=== PATIENT | female | born 1980 | race Caucasian/White ===

== ENCOUNTER → 2023-10-20 10:11 | Outpatient (BNVA) | payer OTHER, SELFPAY | PROVIDERS: Visit Provider Physician Assistant Medical | DX: S80.01XA Contusion of right knee, initial encounter (principal); S90.31XA Contusion of right foot, initial encounter; S93.511A Sprain of interphalangeal joint of right great toe, initial encounter; S76.012A Strain of muscle, fascia and tendon of left hip, initial encounter; W01.0XXA Fall on same level from slipping, tripping and stumbling without subsequent striking against object, initial encounter | CPT/HCPCS: 73610; 99203 ==

== ENCOUNTER → 2023-10-26 14:23 | Outpatient (BNVA) | payer OTHER, SELFPAY | PROVIDERS: Visit Provider Physician Assistant Medical | DX: S80.01XA Contusion of right knee, initial encounter (principal); S76.012A Strain of muscle, fascia and tendon of left hip, initial encounter; S93.511A Sprain of interphalangeal joint of right great toe, initial encounter; S90.31XA Contusion of right foot, initial encounter; W01.0XXA Fall on same level from slipping, tripping and stumbling without subsequent striking against object, initial encounter | CPT/HCPCS: 99213 ==

== ENCOUNTER → 2023-11-15 15:21 | Outpatient (BNVA) | payer OTHER, SELFPAY | PROVIDERS: Visit Provider Physician Assistant Medical | DX: S93.601D Unspecified sprain of right foot, subsequent encounter (principal); W01.0XXD Fall on same level from slipping, tripping and stumbling without subsequent striking against object, subsequent encounter | CPT/HCPCS: 99213 ==